=== PATIENT | female | born 1985 | race Two or more races ===

== ENCOUNTER → 2024-10-07 | Outpatient (CLI) | payer MEDICAID, SELFPAY ==
--- NOTE | 2024-10-07 12:49 | XR_ITS ---
Examination: PA lateral chest 2 views TECHNIQUE: Upright PA lateral chest 2 views Date and time: October 07, 2024 1331 hours Comparison May 07, 2023 INDICATIONS: +PPD. FINDINGS: Normal heart size No lobar pneumonia. The osseous structures are intact IMPRESSION: No active disease No radiographic findings of tuberculosis
== END | disposition home or self-care (01) ==
PROVIDERS: PCP Physician Assistant; Referring Provider Physician Assistant; Visit Provider Physician Assistant
DX: Z86.11 Personal history of tuberculosis (principal)
CPT/HCPCS: 71046